=== PATIENT | male | born 1955 | race African-American/Black ===

== ENCOUNTER 2024-01-19 13:22 | Inpatient (IN) | payer MEDICAID ==
[~2024-01-19] VITALS: Ht 170.2 cm; Wt 81.6 kg
[2024-01-19 14:44] LABS: BASOPHILS % 0.4 % (0.0-2.0); EOSINOPHILS % 1.7 % (0.0-5.0); HEMATOCRIT. 37.3 % (42.0-52.0); HEMOGLOBIN. 12.2 g/dL (14.0-18.0); LYMPHOCYTES % 29.6 % (20.0-50.0); MEAN CORPUSCULAR HEMOGLOBIN 27.7 pg (28.0-32.0); MEAN CORPUSCULAR HGB CONC 32.7 g/dL (31.0-37.0); MEAN CORPUSCULAR VOLUME 84.8 fL (80.0-94.0); MEAN PLATELET VOLUME 9.1 fl (7.4-10.4); MONOCYTES % 11.2 % (2.0-8.0); NEUTROPHILS % 57.1 % (40.0-76.0); PLATELET 273 x1000/uL (130-400); WHITE BLOOD COUNT 5.1 x1000/uL (4.5-11.0)
[2024-01-19 14:52] LABS: CHLORIDE 109 mEq/L (98-107); POTASSIUM 4.4 mEq/L (3.5-5.1); SODIUM 141 mEq/L (136-145)
[2024-01-19 14:53] LABS: CARBON DIOXIDE 25 mEq/L (21-32)
[2024-01-19 14:54] LABS: CALCIUM 9.6 mg/dL (8.7-10.4)
[2024-01-19 14:59] LABS: CREATININE 1.2 mg/dL (0.6-1.3); GLUCOSE 90 mg/dL (70-105); UREA NITROGEN BLOOD 14 mg/dL (9-23)
[2024-01-19 16:56] LABS: CLARITY URINE TURBID (CLEAR); COLOR URINE RED (YELLOW); GLUCOSE URINE NEGATIVE (NEGATIVE); KETONES URINE NEGATIVE (NEGATIVE); LEUKOCYTE ESTERASE URINE 3+ (NEGATIVE); NITRITE URINE POSITIVE (NEGATIVE); OCCULT BLOOD URINE 3+ (NEGATIVE); PH URINE 6.5 (4.5-8.0); PROTEIN URINE 2+ (NEGATIVE); SPECIFIC GRAVITY URINE 1.017 (1.005-1.030)
[2024-01-19] MEDS ORDERED: CEFTRIAXONE 1GM/50ML 50 ML IV ONE (17:45)
[2024-01-19 17:50] LABS: BACTERIA URINE 4+; RBC URINE TNTC /hpf (0-2); SQUAMOUS EPITHELIAL CELL URINE FEW /lpf (RARE/1+); WBC URINE TNTC /hpf (0-2)
[2024-01-20] VITALS (7 sets, daily range): BP systolic 95–143; BP diastolic 59–88; PULSE 75–100; RESP 18–20; TEMP 35.94732–37.11408; O2SAT 97–100
[2024-01-20] MEDS ORDERED: HYDROCODONE/ACETAMINOPHEN 5/325MG TABLET PO PRN (02:15)
[2024-01-20] MEDS: PIPERACILLIN/TAZO 3.375G/50ML 50 ML IV SCH (06:50)
[2024-01-20] MEDS: TAMSULOSIN HCL 0.4MG SR CAPSULE PO SCH (08:58)
[2024-01-20] MEDS ORDERED: KETOROLAC 15MG/ML VIAL IV PRN (10:30)
[2024-01-21] VITALS: BP 118/70; PULSE 98; RESP 18; TEMP 37.05852; O2SAT 97
[2024-01-21 04:00] VITALS: BP 119/68; PULSE 99; RESP 18; TEMP 37.05852; O2SAT 98
[2024-01-21 08:00] VITALS: BP 118/81; PULSE 100; RESP 19; TEMP 36.50292; O2SAT 99
[2024-01-21 12:00] VITALS: BP 112/77; PULSE 99; RESP 19; TEMP 36.22512; O2SAT 99
[2024-01-21 16:00] VITALS: BP 118/88; PULSE 99; RESP 19; TEMP 36.6696; O2SAT 99
[2024-01-21 20:00] VITALS: BP 114/76; PULSE 103; RESP 18; TEMP 37.11408; O2SAT 97
[2024-01-22] VITALS: BP_SYST 112; BP_SYST 118; BP_DIAS 79; PULSE 97; PULSE 98; RESP 18; RESP 19; TEMP 36.55848; TEMP 36.61404; O2SAT 97; O2SAT 99
[2024-01-22 04:00] VITALS: BP 121/76; PULSE 99; RESP 19; TEMP 36.50292; O2SAT 96
[2024-01-22 08:00] VITALS: BP 107/74; PULSE 91; RESP 19; TEMP 36.89184; O2SAT 100
[2024-01-22] MEDS ORDERED: LEVO-65 MT (11:40)
[2024-01-22 12:00] VITALS: BP 121/95; PULSE 94; RESP 18; TEMP 36.50292; O2SAT 97
[2024-01-22 16:00] VITALS: BP 130/67; PULSE 87; RESP 18; TEMP 36.61404; O2SAT 97
[2024-01-22 20:00] VITALS: BP 112/79; PULSE 97; RESP 18; TEMP 36.61404; O2SAT 99
[2024-01-23] VITALS: BP 111/84; PULSE 85; RESP 18; TEMP 35.89176; O2SAT 100
[2024-01-23 04:00] VITALS: BP 107/70; PULSE 100; RESP 18; TEMP 36.50292; O2SAT 95
[2024-01-23 08:00] VITALS: BP 120/76; PULSE 84; RESP 20; TEMP 36.55848; O2SAT 100
[2024-01-23 10:50] VITALS: BP 93/65; PULSE 94; TEMP 97.9; O2SAT 99
[2024-01-23 12:00] VITALS: BP 98/68; PULSE 103; RESP 18; TEMP 36.50292; O2SAT 99
== END 2024-01-23 16:55 | disposition home or self-care (01) ==
LOC: ER 13:22 → EDBEDREQTM 18:48 → EDBEDREQ 18:48 → 5WST 21:57 → 6EST 01-20 00:32
PROVIDERS: ADMIT Internal Medicine; ATTEND Internal Medicine
DX: K80.20 Calculus of gallbladder without cholecystitis without obstruction (principal); N30.91 Cystitis, unspecified with hematuria; D64.9 Anemia, unspecified; Z85.07 Personal history of malignant neoplasm of pancreas; K57.90 Diverticulosis of intestine, part unspecified, without perforation or abscess without bleeding
CPT/HCPCS: 36415; 74176; 80048; 81003; 85025; 87077; 87186; 97161; 97166; 99285; J2543